=== PATIENT | male | born 1980 | race Caucasian/White ===

== ENCOUNTER 2024-10-11 11:24 | Inpatient (IN) | payer MEDICAID, SELFPAY ==
[2024-10-11 11:26] VITALS: BP 148/98; PULSE 115; RESP 16; TEMP 37.1; O2SAT 97; BMI 25.0
--- NOTE | 2024-10-11 11:31 | ED.C_ITS ---
HPI - Psych General: Chief Complaint: Psychiatric Symptoms Stated Complaint: SI Time Seen by Provider: 10/11/24 11:26 Source: patient Mode of arrival: ambulatory Limitations: no limitations History of Present Illness: 44-year-old male is here with EMS with s uicidal ideations he states that he has been suicidal last 2 days he has a plan of shooting himself. He denies any worse improving factors. He has had previous admissions in the past Associated symptoms: Reports depression and suicidal ideation Related Data Home Medications ?Medication ?Instructions ?Recorded ?Confirmed No Known Home Medications 10/11/2409/19 Review of Systems Const: Denies: fever(s), chills, body aches or change in appetite ENMT: Denies: throat pain or dental pain Card: Denies: chest pain Resp: Denies: dyspnea GI: Denies: abdominal pain, nausea, vomiting or diarrhea Musc: Denies: neck pain or back pain Skin/Breast: Denies: rash Neuro: Denies: headache(s) Psych: Reports: depression and suicidal ideation Physical Exam Const: COMMON NORMALS: no acute distress, patient oriented x3 and healthy appearing HENMT: COMMON NORMALS: normocephalic and atraumatic HEAD & SCALP: normocephalic and atraumatic Eye: COMMON NORMALS: conjunctivae normal CONJUNCTIVA: Yes conjunctivae normal Neck/C-Spine: COMMON NORMALS: full ROM and supple Chest: COMMONS NORMALS: normal inspection of the chest Resp: COMMON NORMALS: normal respiratory effort Cardio: COMMON NORMALS: regular rate, regular rhythm and No murmurs present (Cardio) RATE: regular rate RHYTHM: regular rhythm Extremity: COMMON NORMALS: normal to inspection and full ROM Neuro: COMMON NORMALS: patient oriented x3, moves all extremities and no focal motor deficits Psych: COMMON NORMALS: mental status grossly normal, Normal thought process present and cooperative THOUGHT PROCESS: Normal thought process present Skin: COMMON NORMALS: no rashes or lesions noted and no wounds GENERAL SKIN EXAM: no rashes or lesions noted Course Vital Signs: Vital signs: Vital Signs Temperature 98.8 F 10/11/24 11:26 Pulse Rate 115 H 10/11/24 11:26 Respiratory Rate 18 10/11/24 12:13 Blood Pressure 148/98 10/11/24 11:26 Pulse Oximetry 99 10/11/24 12:13 Oxygen Delivery Me thod Room Air 10/11/24 12:13 MDM - Psych Medical Decision Making Patient presents for suicidal ideations he is medically cleared he is on a 96- hour hold I spoke to psychiatrist will admit Medical Records I reviewed the patient's medical records. Lab Data I reviewed the patient's lab results. Laboratory Results Urine Opiates Screen Negative ng/mL (Negative) 10/11/24 11:41 Ur Barbiturates Screen Negative ng/mL (Negative) 10/11/24 11:41 Ur Phencyclidine Scrn Negative ng/mL (Negative) 10/11/24 11:41 Ur Amphetamines Screen Negative ng/mL (Negative) 10/11/24 11:41 U Benzodiazepines Scrn Negative ng/mL (Negative) 10/11/24 11:41 Urine Cocaine Screen Negative ng/mL (Negative) 10/11/24 11:41 U Marijuana (THC) Screen Negative ng/mL (Negative) 10/11/24 11:41 No radiology studies performed this visit Discharge Plan Discharge Patient Disposition: Admitted As Inpatient Clinical Impression: Suicidal ideation Condition: Stable Prescriptions: No Action No Known Home Medications Print Language: Bahraini Coding Level of Care Code ED Systems Integration Advisor for Thomas Deras
[2024-10-11 12:13] VITALS: RESP 18; O2SAT 99
[2024-10-11 12:44] LABS: Amphetamines Screen Urine Negative (Negative); Barbiturates Screen Urine Negative (Negative); Benzodiazepines Screen Urine Negative (Negative); Cocaine Screen Urine Negative (Negative); Opiate Screen Urine Negative (Negative); PCP Screen Urine Negative (Negative); THC Screen Urine Negative (Negative)
[2024-10-11 13:05] LABS: Basophils # 0.1 10^3/uL (0.0-0.1); Basophils % 0.4 %; Eosinophils % 0.3 %; Hematocrit 45.8 % (37-53); Lymphocytes # 1.7 10^3/uL (0.8-4.8); Lymphocytes % 12.8 %; Mean Corpuscular HGB Conc 33.4 g/dL (30-55); Mean Corpuscular Hemoglobin 28.4 pg (27-33); Mean Corpuscular Volume 85.1 fl (82-101); Mean Platelet Volume 9.2 fL (7.4-10.4); Monocytes # 0.7 10^3/uL (0.2-0.9); Monocytes % 5.7 %; Neutrophils # 10.36 10^3/uL (1.8-7.7); Neutrophils % 80.5 %; Nucleated Red Blood Cells % 0 %; Platelet Count 399 10^3/cmm (157-399); Red Blood Count 5.38 10^6/uL (3.85-5.65); Red Cell Distribution Width 13.7 % (12.1-15.1); White Blood Count 12.87 10^3/uL (3.29-11.43)
[2024-10-11 13:08] VITALS: BP 117/73; PULSE 101; RESP 16; TEMP 36.8; O2SAT 98
[2024-10-11 13:33] LABS: Alanine Aminotransferase 35 U/L (0-41); Albumin Level 4.4 g/dL (3.5-5.2); Alkaline Phosphatase 82 U/L (40-130); Anion Gap 15.8 (5-19); Aspartate Amino Transferase 19 U/L (0-40); Blood Urea Nitrogen 19 mg/dL (6-20); Calcium 9.6 mg/dL (8.5-10.5); Carbon Dioxide 24 mmol/L (22-29); Chloride 103 mmol/L (98-107); Creatinine Clr Calc Pharmacy 118.1135; Globulin 2.6 g/dL (1.3-4.6); Glomerular Filtration Rate 122.5 mL/min (90-130); Glucose 95 mg/dL (65-115); Osmolality Calculated 290 mOsm/kg (285-295); Potassium 3.8 mmol/L (3.5-5.1); Sodium 139 mmol/L (136-145); Total Bilirubin 0.6 mg/dL (0.15-1.2)
[2024-10-11 13:34] LABS: Acetaminophen < 5.0 ug/mL (10-30); Alcohol Level < 10 mg/dL (0-10); Salicylate < 0.3 mg/dL (3-10)
[2024-10-11] MEDS: hyDROXYzine 25 mg Capsule 50 MG PO ×2 (13:43→20:03)
[2024-10-11] MEDS: acetaminophen 325 mg Tablet 650 MG PO (13:45)
--- NOTE | 2024-10-11 13:48 | PC.NURSE ---
Addendum entered by Rachana Alfaro RN 10/11/24 13:51: Dr Burnett notified. Original Note: IBUPROFEN ALLERGY 1500 Ibuprofen held d/t pt allergy-breaks out in rash. Administered Acetaminophen per order instead.
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
[2024-10-11 14:00] VITALS: BP 144/88; PULSE 83; RESP 16; TEMP 37.1; O2SAT 98
[2024-10-11 16:39] LABS: Bilirubin Urine Negative (Negative); Blood Urine Negative (Negative); Glucose Urine UA Negative (Normal); Ketones Urine Trace (Negative); Leukocyte Esterase Urine Negative (Negative); Nitrate Urine Negative (Negative); Protein Urine Trace (Negative); Urine Appearance Clear (CLEAR); Urine Color Yellow (Yellow); pH Urine 6.5 (5-7)
[2024-10-11 17:06] LABS: Add Urine Microscopic? YES; UA Manual Slide Review YES; UA Slide Review UA Slide Review Perf
[2024-10-11 17:10] LABS: Add Urine Culture? No; Hyaline Casts Urine 0-4 /lpf; Mucus Urine TRACE /hpf; RBC Urine 0-4 /hpf (0-2); WBC Urine 0-4 /hpf (0-5)
[2024-10-11] MEDS: trazodone 50 mg Tablet PO (20:03)
[2024-10-11 21:39] VITALS: BP 107/72; PULSE 94; RESP 16; O2SAT 98
[2024-10-12 06:00] VITALS: BP 95/82; PULSE 81; RESP 16; TEMP 36.7; O2SAT 96
[2024-10-12] MEDS: acetaminophen 325 mg Tablet 650 MG PO ×2 (08:18→17:30)
[2024-10-12] MEDS: OLANZapine 5 mg ODT PO (12:21)
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
[2024-10-12 14:00] VITALS: BP 129/75; PULSE 93; RESP 18; TEMP 36.6; O2SAT 92
[2024-10-12] MEDS: flu vacc pf 24-25 (6 mos+) SYRINGE 45 MCG IM (16:04)
[2024-10-12] MEDS: ARIPiprazole 10 mg Tablet 5 MG PO (17:30)
--- NOTE | 2024-10-12 19:01 | PC.NURSE ---
Administered Flu Vac to pt in the left deltoid, tolerated well.
[2024-10-12] MEDS: hyDROXYzine 25 mg Capsule 50 MG PO (19:44)
[2024-10-12] MEDS: trazodone 50 mg Tablet PO (19:45)
[2024-10-12 20:05] VITALS: BP 120/85; PULSE 81; RESP 17; TEMP 36.6; O2SAT 98
[2024-10-13 06:00] VITALS: BP 126/91; PULSE 83; RESP 18; TEMP 36.8; O2SAT 99
[2024-10-13] MEDS: ARIPiprazole 10 mg Tablet 5 MG PO ×2 (08:12→21:17)
[2024-10-13] MEDS: acetaminophen 325 mg Tablet 650 MG PO ×2 (08:12→15:39)
[2024-10-13] MEDS: haloperidol 5 mg Tablet PO (09:31)
[2024-10-13] MEDS: hyDROXYzine 25 mg Capsule 50 MG PO (09:31)
[2024-10-13 14:00] VITALS: BP 116/73; PULSE 88; RESP 18; TEMP 36.5; O2SAT 98
--- NOTE | 2024-10-13 14:00 | W.PM.NPUPNS ---
Subjective NPU Subjective: Patient presented today reporting that he is still feeling fairly down and confused some about what he needs to do and what is going to happen next. Staff reports of some concerns identified by his air defence officer and he identified some concerns about any trouble he might be in secondary to his situation. We discussed the risks benefits and alternatives of increasing his Abilify and he understood and agreed to proceed as is documented in this note and he reported that he is tolerating the Abilify thus far. He denied any side effects to the medication. We continue to discussed the possibility of adding an antidepressant. Mental Status Exam MSE Comments: This is a well-nourished, well-developed white male in hospital scrubs with limited grooming and limited eye contact. No abnormal movements except for mild psychomotor retardation. Cooperative with exam in mild to moderate distress. Speech was slightly decreased rate and normal volume. Mood described as struggling, affect congruent. Thought process organized. Thought content: Patient endorsed some suicidal but denied homicidal ideation, paranoia reported and noted, he endorsed auditory but denied visual hallucinations. Reports feeling suicidal with thoughts to hurt or kill themselves and others. Experiences visual hallucinations, hearing voices, and delusions, feeling paranoid and that people are scheming against them. Describes mood as depressed, with feelings of worthlessness and helplessness. Denies anxiety but reports frequent depression.Attention and concentration appeared intact and memory was mostly reliable but none were formally tested. He is alert and oriented x 3. Insight and judgment are limited impulse control impaired. Vitals/I&O/Wt Last Vital Signs Temp 98.2 F 10/13/24 06:00 Pulse 83 10/13/24 06:00 Resp 18 10/13/24 06:00 BP 126/91 10/13/24 06:00 Pulse Ox 99 10/13/24 06:00 O2 Del Method Room Air 10/13/24 06:00 Data NPU 10/11/24 12:47 10/11/24 12:47 A&P Assessment and plan (1) Suicidal ideation: (2) Major depressive disorder: (3) Methamphetamine dependence: (4) Alcohol use disorder, moderate, dependence: Plan This is a 44-year-old white male with a significant history of addiction issues as well as a long history of mental health challenges including depression and reports of psychotic symptoms but it is unclear whether this is only in some kind of connection with methamphetamine use. The assessment indicates a complex interplay of mental health and substance use issues. There is a history of depression with passive wishes and recent suicidal ideation. The patient has a significant history of substance use, including alcohol and methamphetamine, which has contributed to mental health challenges. There are indications of anxiety and possible paranoia, particularly associated with methamphetamine use. The patient has a history of self-injurious behavior, including a significant incident in 2015. There is also a suggestion of a thought disorder, as evidenced by auditory hallucinations and paranoid ideation. The patient has been in and out of treatment facilities and has a history of legal issues related to substance use. 1. Started Abilify 5 mg p.o. daily and consider an antidepressant. Increase Abilify to 10 mg p.o. daily 2. Encourage individual, group and milieu therapy. 3. Continue every 15 minute checks for safety. 4. Obtain collateral information. 5. Encourage sober living treatment after discharge at the highest level care to which he is willing to commit. 6. Monitor against the backdrop of the 96-hour hold for safety. PDMP PDMP Reviewed: Not Reviewed Attestations NPU Medical Necessity Statement*: Inpatient hospitalization is medically necessary and the clinically appropriate intervention at this time. We will monitor medications and make changes as indicated. Likely length of stay 3-5 days. Coding Level of Care Code Acute Code for [facility] Fwd Diagnoses Suicidal ideation R45.851 Major depressive disorder F32.9 Methamphetamine dependence F15.20 Alcohol use disorder, moderate, dependence F10.20
[2024-10-13 19:56] VITALS: BP 111/71; PULSE 89; RESP 18; TEMP 36.6; O2SAT 97
[2024-10-13] MEDS: trazodone 50 mg Tablet PO (20:31)
--- NOTE | 2024-10-13 20:34 | PC.NURSE ---
This nurse receieved orders from Dr. Burnett to give abilify 5mg PO now and then to start abilify 10mg Po in AM.
[2024-10-14 06:00] VITALS: BP 118/80; PULSE 106; RESP 18; TEMP 36.4; O2SAT 98
[2024-10-14] MEDS: ARIPiprazole 10 mg Tablet PO (07:36)
[2024-10-14] MEDS: acetaminophen 325 mg Tablet 650 MG PO (07:36)
[2024-10-14] MEDS: OLANZapine 5 mg ODT PO (07:36)
--- NOTE | 2024-10-14 12:27 | P.NPUPN_ITS ---
Subjective NPU 2 Subjective: Patient presented today reporting that things are going okay. He denied any difficulties with the increase in the Abilify. He is working with the social work team on a likely plan for going to a penitentiary or other sober living program. We discussed the possibility of starting an antidepressant in the next day or so with a tentative plan for discharge at the beginning of the week. He denied any side effects to the medication. Mental Status Exam 2 MSE Comments: This is a well-nourished, well-developed white male in hospital scrubs with limited grooming and limited eye contact. No abnormal movements except for mild psychomotor retardation. Cooperative with exam in mild to moderate distress. Speech was slightly decreased rate and normal volume. Mood described as struggling, affect congruent. Thought process organized. Thought content: Patient endorsed some suicidal but denied homicidal ideation, paranoia reported and noted, he endorsed auditory but denied visual hallucinations. Reports feeling suicidal with thoughts to hurt or kill themselves and others. Experiences visual hallucinations, hearing voices, and delusions, feeling paranoid and that people are scheming against them. Describes mood as depressed, with feelings of worthlessness and helplessness. Denies anxiety but reports frequent depression.Attention and concentration appeared intact and memory was mostly reliable but none were formally tested. He is alert and oriented x 3. Insight and judgment are limited impulse control impaired. Vitals/I&O/Wt Last Vital Signs Temp 97.5 F L 10/14/24 06:00 Pulse 106 H 10/14/24 06:00 Resp 18 10/14/24 06:00 BP 118/80 10/14/24 06:00 Pulse Ox 98 10/14/24 06:00 O2 Del Method Room Air 10/14/24 06:00 Data NPU 10/11/24 12:47 10/11/24 12:47 A&P Assessment and plan (1) Suicidal ideation: (2) Major depressive disorder: (3) Methamphetamine dependence: (4) Alcohol use disorder, moderate, dependence: Plan This is a 44-year-old white male with a significant history of addiction issues as well as a long history of mental health challenges including depression and reports of psychotic symptoms but it is unclear whether this is only in some kind of connection with methamphetamine use. The assessment indicates a complex interplay of mental health and substance use issues. There is a history of depression with passive wishes and recent suicidal ideation. The patient has a significant history of substance use, including alcohol and methamphetamine, which has contributed to mental health challenges. There are indications of anxiety and possible paranoia, particularly associated with methamphetamine use. The patient has a history of self-injurious behavior, including a significant incident in 2014. There is also a suggestion of a thought disorder, as evidenced by auditory hallucinations and paranoid ideation. The patient has been in and out of treatment facilities and has a history of legal issues related to substance use. 1. Started Abilify 5 mg p.o. daily and consider an antidepressant. Increased Abilify to 10 mg p.o. daily. 2. Encourage individual, group and milieu therapy. 3. Continue every 15 minute checks for safety. 4. Obtain collateral information. 5. Encourage sober living treatment after discharge at the highest level care to which he is willing to commit. 6. Monitor against the backdrop of the 96-hour hold for safety. PDMP PDMP Reviewed: Not Reviewed Attestations NPU 2 Medical Necessity Statement*: Inpatient hospitalization is medically necessary and the clinically appropriate intervention at this time. We will monitor medications and make changes as indicated. Likely length of stay 2-4 days. Coding Level of Care Code Acute Code for [facility] Fwd Diagnoses Suicidal ideation R45.851 Major depressive disorder F32.9 Methamphetamine dependence F15.20 Alcohol use disorder, moderate, dependence F10.20
[2024-10-14 14:00] VITALS: BP 113/81; PULSE 99; RESP 16; TEMP 36.6; O2SAT 97
[2024-10-14 20:01] VITALS: BP 125/78; PULSE 87; RESP 17; TEMP 36.8; O2SAT 96
[2024-10-14] MEDS: hyDROXYzine 25 mg Capsule 50 MG PO (21:02)
[2024-10-14] MEDS: trazodone 50 mg Tablet PO (21:02)
[2024-10-15 06:00] VITALS: BP 133/68; PULSE 104; RESP 18; TEMP 37.2; O2SAT 97
[2024-10-15] MEDS: ARIPiprazole 10 mg Tablet PO (07:35)
[2024-10-15] MEDS: acetaminophen 325 mg Tablet 650 MG PO ×2 (07:35→14:37)
[2024-10-15] MEDS: OLANZapine 5 mg ODT PO ×2 (07:50→20:04)
[2024-10-15] MEDS: nicotine 2 mg Gum BUCCAL ×2 (08:23→20:04)
[2024-10-15] MEDS: hyDROXYzine 25 mg Capsule 50 MG PO (08:46)
[2024-10-15 14:00] VITALS: BP 116/79; PULSE 101; RESP 16; TEMP 36.6; O2SAT 97
--- NOTE | 2024-10-15 15:40 | P.NPUPN_ITS ---
Subjective NPU 2 Subjective: Patient presented today reporting that things are going better. He reports that the Abilify seems to be working and he is pleased with the outcome. We discussed the risks, benefits and alternatives of starting an antidepressant and he understood and agreed to proceed as is documented in this note wishes to maintain the medications as is as they seem to be working. He is working with the social work team on discharge planning and the likelihood will be [facility] with appropriate follow-ups and referrals to appropriate resources including for housing. He denies any side effects of medication. Mental Status Exam 2 MSE Comments: This is a well-nourished, well-developed white male in hospital scrubs with limited grooming and limited eye contact. No abnormal movements except for mild psychomotor retardation. Cooperative with exam in mild distress. Speech was slightly decreased rate and normal volume. Mood described as a little better, affect congruent. Thought process organized. Thought content: Patient endorsed some suicidal but denied homicidal ideation, less paranoia reported or noted, he denied auditory but denied visual hallucinations. Attention and concentration appeared intact and memory was mostly reliable but none were formally tested. He is alert and oriented x 3. Insight and judgment are limited impulse control impaired. Vitals/I&O/Wt Last Vital Signs Temp 98.9 F 10/15/24 06:00 Pulse 104 H 10/15/24 06:00 Resp 18 10/15/24 06:00 BP 133/68 10/15/24 06:00 Pulse Ox 97 10/15/24 06:00 O2 Del Method Room Air 10/15/24 06:00 Data NPU 10/11/24 12:47 10/11/24 12:47 A&P Assessment and plan (1) Suicidal ideation: (2) Major depressive disorder: (3) Methamphetamine dependence: (4) Alcohol use disorder, moderate, dependence: Plan This is a 44-year-old white male with a significant history of addiction issues as well as a long history of mental health challenges including depression and reports of psychotic symptoms but it is unclear whether this is only in some kind of connection with methamphetamine use. The assessment indicates a complex interplay of mental health and substance use issues. There is a history of depression with passive wishes and recent suicidal ideation. The patient has a significant history of substance use, including alcohol and methamphetamine, which has contributed to mental health challenges. There are indications of anxiety and possible paranoia, particularly associated with methamphetamine use. The patient has a history of self-injurious behavior, including a significant incident in 2014. There is also a suggestion of a thought disorder, as evidenced by auditory hallucinations and paranoid ideation. The patient has been in and out of treatment facilities and has a history of legal issues related to substance use. 1. Started Abilify 5 mg p.o. daily. Increased Abilify to 10 mg p.o. daily. 2. Encourage individual, group and milieu therapy. 3. Continue every 15 minute checks for safety. 4. Obtain collateral information. 5. Encourage sober living treatment after discharge at the highest level care to which he is willing to commit. 6. Monitor against the backdrop of the 96-hour hold for safety. 7. Tentative plan to discharge likely to SOC on Friday PDMP PDMP Reviewed: Not Reviewed Attestations NPU 2 Medical Necessity Statement*: Inpatient hospitalization is medically necessary and the clinically appropriate intervention at this time. We will monitor medications and make changes as indicated. Likely length of stay 3 days. Coding Level of Care Code Acute Code for [facility] Fwd Diagnoses Suicidal ideation R45.851 Major depressive disorder F32.9 Methamphetamine dependence F15.20 Alcohol use disorder, moderate, dependence F10.20
[2024-10-15] MEDS: trazodone 50 mg Tablet PO (20:04)
--- NOTE | 2024-10-15 20:47 | PC.NURSE ---
AT NURSES STATION, REMAINS INTRUSIVE AT TIMES. DENIES PAIN. DENIES SI/HI AVH. RATES ANXIETY 01/25 AND DEPRESSION 02/24. ZYDIS 5 MG WAS GIVEN FOR INCREASED ANXIETY, TRAZODONE 50 MG GIVEN ORDERED FOR SLEEP. PT VERY TALKATIVE. SUPPORT VOICED.
[2024-10-15 22:00] VITALS: BP 114/77; PULSE 112; RESP 18; TEMP 36.6; O2SAT 98
[2024-10-16] MEDS: acetaminophen 325 mg Tablet 650 MG PO ×2 (04:44→14:09)
[2024-10-16 06:00] VITALS: BP 124/81; PULSE 107; RESP 18; TEMP 36.7; O2SAT 99
[2024-10-16] MEDS: ARIPiprazole 10 mg Tablet PO (08:11)
[2024-10-16] MEDS: haloperidol 5 mg Tablet PO (09:48)
--- NOTE | 2024-10-16 11:32 | W.PM.NPUPNS ---
Subjective NPU Subjective: Patient presented today reporting that things are going fine. He identified that things are going okay and he feels optimistic about going to the detention on Friday and starting things fresh. He denied any new concerns or problems with the medication. Denying any side effects. He endorsed a commitment to his recovery moving forward. Mental Status Exam MSE Comments: This is a well-nourished, well-developed white male in hospital scrubs with limited grooming and limited eye contact. No abnormal movements except for mild psychomotor retardation. Cooperative with exam in mild distress. Speech was slightly decreased rate and normal volume. Mood described as a little better, affect congruent. Thought process organized. Thought content: Patient endorsed some suicidal but denied homicidal ideation, less paranoia reported or noted, he denied auditory but denied visual hallucinations. Attention and concentration appeared intact and memory was mostly reliable but none were formally tested. He is alert and oriented x 3. Insight and judgment are limited impulse control impaired. Vitals/I&O/Wt Last Vital Signs Temp 98.0 F 10/16/24 06:00 Pulse 107 H 10/16/24 06:00 Resp 18 10/16/24 06:00 BP 124/81 10/16/24 06:00 Pulse Ox 99 10/16/24 06:00 O2 Del Method Room Air 10/15/24 14:00 Data NPU 10/11/24 12:47 10/11/24 12:47 A&P Assessment and plan (1) Suicidal ideation: (2) Major depressive disorder: (3) Methamphetamine dependence: (4) Alcohol use disorder, moderate, dependence: Plan This is a 44-year-old white male with a significant history of addiction issues as well as a long history of mental health challenges including depression and reports of psychotic symptoms but it is unclear whether this is only in some kind of connection with methamphetamine use. The assessment indicates a complex interplay of mental health and substance use issues. There is a history of depression with passive wishes and recent suicidal ideation. The patient has a significant history of substance use, including alcohol and methamphetamine, which has contributed to mental health challenges. There are indications of anxiety and possible paranoia, particularly associated with methamphetamine use. The patient has a history of self-injurious behavior, including a significant incident in 2014. There is also a suggestion of a thought disorder, as evidenced by auditory hallucinations and paranoid ideation. The patient has been in and out of treatment facilities and has a history of legal issues related to substance use. 1. Started Abilify 5 mg p.o. daily. Increased Abilify to 10 mg p.o. daily. 2. Encourage individual, group and milieu therapy. 3. Continue every 15 minute checks for safety. 4. Obtain collateral information. 5. Encourage sober living treatment after discharge at the highest level care to which he is willing to commit. 6. Monitor against the backdrop of the 96-hour hold for safety. 7. Tentative plan to discharge likely to SOC on Friday PDMP PDMP Reviewed: Not Reviewed Attestations NPU Medical Necessity Statement*: Inpatient hospitalization is medically necessary and the clinically appropriate intervention at this time. We will monitor medications and make changes as indicated. Likely length of stay 2 days. Coding Level of Care Code Acute Code for [facility] Fwd Diagnoses Suicidal ideation R45.851 Major depressive disorder F32.9 Methamphetamine dependence F15.20 Alcohol use disorder, moderate, dependence F10.20
[2024-10-16 14:00] VITALS: BP 118/82; PULSE 131; RESP 16; TEMP 37; O2SAT 96
[2024-10-16 20:00] VITALS: BP 121/85; PULSE 98; RESP 16; TEMP 36.4; O2SAT 99
[2024-10-16] MEDS: OLANZapine 5 mg ODT PO (20:17)
[2024-10-16] MEDS: trazodone 50 mg Tablet PO (20:17)
[2024-10-16 22:00] VITALS: BP 121/85; PULSE 98; RESP 16; TEMP 36.4; O2SAT 99
[2024-10-17 06:00] VITALS: BP 132/88; PULSE 107; RESP 17; TEMP 36.6; O2SAT 98
[2024-10-17] MEDS: ARIPiprazole 10 mg Tablet PO (09:59)
[2024-10-17] MEDS: nicotine 2 mg Gum BUCCAL (09:59)
[2024-10-17 14:00] VITALS: BP 118/78; PULSE 66; RESP 16; TEMP 36.6; O2SAT 98
--- NOTE | 2024-10-17 15:26 | W.PM.NPUPNS ---
Subjective NPU Subjective: Patient presented today reporting that he was doing fine. We discussed the tentative plan for discharge tomorrow with likely plan for SOC is a temporary fix for his residential dilemma. He did reiterate that he did not want to return to the program which she left from. We discussed that treatment team is aware of his desires and that they will be in in the morning to execute the plan for him to discharge to custodial attempt to engage in programs will assist him in regaining his stability. He denied any side effects to the medication. Mental Status Exam MSE Comments: This is a well-nourished, well-developed white male in hospital scrubs with limited grooming and limited eye contact. No abnormal movements except for mild psychomotor retardation. Cooperative with exam in mild distress. Speech was slightly decreased rate and normal volume. Mood described as a little better, affect congruent. Thought process organized. Thought content: Patient endorsed some suicidal but denied homicidal ideation, less paranoia reported or noted, he denied auditory but denied visual hallucinations. Attention and concentration appeared intact and memory was mostly reliable but none were formally tested. He is alert and oriented x 3. Insight and judgment are limited impulse control impaired. Vitals/I&O/Wt Last Vital Signs Temp 98 F 10/17/24 14:00 Pulse 66 10/17/24 14:00 Resp 16 10/17/24 14:00 BP 118/78 10/17/24 14:00 Pulse Ox 98 10/17/24 14:00 O2 Del Method Room Air 10/17/24 14:00 Weight last 48 hrs Weight 68.039 kg Data NPU 10/11/24 12:47 10/11/24 12:47 A&P Assessment and plan (1) Suicidal ideation: (2) Major depressive disorder: (3) Methamphetamine dependence: (4) Alcohol use disorder, moderate, dependence: Plan This is a 44-year-old white male with a significant history of addiction issues as well as a long history of mental health challenges including depression and reports of psychotic symptoms but it is unclear whether this is only in some kind of connection with methamphetamine use. The assessment indicates a complex interplay of mental health and substance use issues. There is a history of depression with passive wishes and recent suicidal ideation. The patient has a significant history of substance use, including alcohol and methamphetamine, which has contributed to mental health challenges. There are indications of anxiety and possible paranoia, particularly associated with methamphetamine use. The patient has a history of self-injurious behavior, including a significant incident in 2014. There is also a suggestion of a thought disorder, as evidenced by auditory hallucinations and paranoid ideation. The patient has been in and out of treatment facilities and has a history of legal issues related to substance use. 1. Started Abilify 5 mg p.o. daily. Increased Abilify to 10 mg p.o. daily. 2. Encourage individual, group and milieu therapy. 3. Continue every 15 minute checks for safety. 4. Obtain collateral information. 5. Encourage sober living treatment after discharge at the highest level care to which he is willing to commit. 6. Monitor against the backdrop of the 96-hour hold for safety. 7. Tentative plan to discharge likely to SOC on Friday PDMP PDMP Reviewed: Not Reviewed Attestations NPU Medical Necessity Statement*: Inpatient hospitalization is medically necessary and the clinically appropriate intervention at this time. We will monitor medications and make changes as indicated. Likely length of stay 1 day. Coding Level of Care Code Acute Code for [facility] Fwd Diagnoses Suicidal ideation R45.851 Major depressive disorder F32.9 Methamphetamine dependence F15.20 Alcohol use disorder, moderate, dependence F10.20
[2024-10-17] MEDS: trazodone 50 mg Tablet PO (20:33)
[2024-10-17] MEDS: hyDROXYzine 25 mg Capsule 50 MG PO (20:33)
[2024-10-17 22:00] VITALS: BP 124/77; PULSE 107; RESP 18; TEMP 36.6; O2SAT 98
[2024-10-18 06:00] VITALS: BP 110/82; PULSE 107; RESP 18; TEMP 36.4; O2SAT 98
[2024-10-18] MEDS: ARIPiprazole 10 mg Tablet PO (08:20)
[2024-10-18] MEDS: nicotine 2 mg Gum BUCCAL ×2 (08:45→10:45)
[2024-10-18] MEDS: hyDROXYzine 25 mg Capsule 50 MG PO ×2 (09:52→20:05)
--- NOTE | 2024-10-18 09:52 | PC.NURSE ---
prn Vistaril 50 mg given po per pt c/o stated anxiety. no outward s/s of anxiety noted, pt laughing at the desk while waiting to take his meds.
[2024-10-18] MEDS: OLANZapine 5 mg ODT PO ×2 (10:44→21:51)
[2024-10-18 14:00] VITALS: BP 120/75; PULSE 98; RESP 18; TEMP 36.7; O2SAT 95
--- NOTE | 2024-10-18 14:16 | P.NPUPN_ITS ---
Subjective NPU 2 Subjective: Patient presented today reporting that things are going a little better. He manage the fact that he was not going to be able to go to SOC today quite well per staff reports and direct observation. He endorsed feeling optimistic about the work he is doing with the social work team and the plans they have for short-term and long-term success. He denied any side effects to the medication. We discussed the likelihood of discharge tomorrow morning. Mental Status Exam 2 MSE Comments: This is a well-nourished, well-developed white male in hospital scrubs with adequate grooming and improving eye contact. No abnormal movements except for mild psychomotor retardation. Cooperative with exam in mild distress. Speech was slightly decreased rate and normal volume. Mood described as a little better, affect congruent. Thought process organized. Thought content: Patient denied suicidal or homicidal ideation, less paranoia reported or noted, he denied auditory or visual hallucinations. Attention and concentration appeared intact and memory was mostly reliable but none were formally tested. He is alert and oriented x 3. Insight and judgment are limited impulse control impaired. Vitals/I&O/Wt Last Vital Signs Temp 97.6 F 10/18/24 06:00 Pulse 107 H 10/18/24 06:00 Resp 18 10/18/24 06:00 BP 110/82 10/18/24 06:00 Pulse Ox 98 10/18/24 06:00 O2 Del Method Room Air 10/17/24 14:00 Weight last 48 hrs Weight 68.039 kg Data NPU 10/11/24 12:47 10/11/24 12:47 A&P Assessment and plan (1) Suicidal ideation: (2) Major depressive disorder: (3) Methamphetamine dependence: (4) Alcohol use disorder, moderate, dependence: Plan This is a 44-year-old white male with a significant history of addiction issues as well as a long history of mental health challenges including depression and reports of psychotic symptoms but it is unclear whether this is only in some kind of connection with methamphetamine use. The assessment indicates a complex interplay of mental health and substance use issues. There is a history of depression with passive wishes and recent suicidal ideation. The patient has a significant history of substance use, including alcohol and methamphetamine, which has contributed to mental health challenges. There are indications of anxiety and possible paranoia, particularly associated with methamphetamine use. The patient has a history of self-injurious behavior, including a significant incident in 2015. There is also a suggestion of a thought disorder, as evidenced by auditory hallucinations and paranoid ideation. The patient has been in and out of treatment facilities and has a history of legal issues related to substance use. 1. Started Abilify 5 mg p.o. daily. Increased Abilify to 10 mg p.o. daily. 2. Encourage individual, group and milieu therapy. 3. Continue every 15 minute checks for safety. 4. Obtain collateral information. 5. Encourage sober living treatment after discharge at the highest level care to which he is willing to commit. 6. Monitor against the backdrop of the 96-hour hold for safety. 7. Tentative plan to discharge likely to SOC on tomorrow as they did not have availability today. PDMP PDMP Reviewed: Not Reviewed Attestations NPU 2 Medical Necessity Statement*: Inpatient hospitalization is medically necessary and the clinically appropriate intervention at this time. We will monitor medications and make changes as indicated. Likely length of stay 1 day. Coding Level of Care Code Acute Code for [facility] Fwd Diagnoses Suicidal ideation R45.851 Major depressive disorder F32.9 Methamphetamine dependence F15.20 Alcohol use disorder, moderate, dependence F10.20
[2024-10-18] MEDS: trazodone 50 mg Tablet PO ×2 (20:05→21:51)
[2024-10-18 20:38] VITALS: BP 130/85; PULSE 98; RESP 18; TEMP 36.8; O2SAT 97
--- NOTE | 2024-10-18 21:52 | PC.NURSE ---
PT CAME TO DESK STATING THAT HE WAS STILL UNABLE TO SLEEP. ADDITIONAL TRAZODONE 50MG AND ZYREXA 5MG GIVEN. CONTINUING TO MONITOR.
[2024-10-19 06:00] VITALS: BP 127/93; PULSE 97; RESP 18; TEMP 36.9; O2SAT 96
[2024-10-19] MEDS: nicotine 2 mg Gum BUCCAL (07:41)
[2024-10-19] MEDS: ARIPiprazole 10 mg Tablet PO (07:41)
[2024-10-19] MEDS: calcium carbonate 500 mg Chew Tablet 1000 MG PO (10:06)
[2024-10-19 12:05] VITALS: BP 127/93; PULSE 97; RESP 18; TEMP 36.9; O2SAT 96
== END 2024-10-19 13:35 | disposition home or self-care (01) | DRG 881 ==
LOC: ER 12:51 → NP 13:04
PROVIDERS: Admitting Provider Psychiatry & Neurology Psychiatry; Emergency Provider Emergency Medicine; Visit Provider Psychiatry & Neurology Psychiatry
DX: F32.9 Major depressive disorder, single episode, unspecified (principal); R45.851 Suicidal ideations; F15.20 Other stimulant dependence, uncomplicated; Z59.00 Homelessness unspecified; F10.20 Alcohol dependence, uncomplicated; Z91.51 Personal history of suicidal behavior; F17.220 Nicotine dependence, chewing tobacco, uncomplicated; Z62.810 Personal history of physical and sexual abuse in childhood
CPT/HCPCS: 36415; 80053; 80306; 80307; 81001; 85025; 90471; 90686; 97150; 97165; 99285